=== PATIENT | female | born 1990 | race Caucasian/White ===

== ENCOUNTER 2017-01-18 16:58 | Emergency (ER) | payer OTHER ==
[~2017-01-18 16:58] MED LIST: COLACE 100MG C100 MG PO
== END 2017-01-18 18:22 | disposition home or self-care (01) ==
LOC: ER1 16:58
DX: M79.672 Pain in left foot (principal); R10.11 Right upper quadrant pain; R10.31 Right lower quadrant pain; R11.10 Vomiting, unspecified; R19.7 Diarrhea, unspecified; F17.210 Nicotine dependence, cigarettes, uncomplicated; Z88.0 Allergy status to penicillin; Z88.6 Allergy status to analgesic agent; Z90.49 Acquired absence of other specified parts of digestive tract
CPT/HCPCS: 36415; 73630; 84703; 96374; 96375; 96376; 99284